=== PATIENT | male | born 1995 | race American Indian/Alaskan Native ===

== ENCOUNTER 2016-06-20 02:30 | Emergency (ER) | payer SELFPAY ==
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
== END 2016-06-20 06:55 ==
LOC: ED 02:30 → EDBD 02:30 → MERGE 02:30 → ED 06:55
DX: S21.302A Unspecified open wound of left front wall of thorax with penetration into thoracic cavity, initial encounter (principal); W34.09XA Accidental discharge from other specified firearms, initial encounter; Y93.9 Activity, unspecified; Y92.9 Unspecified place or not applicable; Y99.9 Unspecified external cause status
CPT/HCPCS: 99285